=== PATIENT | male | born 1990 | race Caucasian/White ===

== ENCOUNTER 2018-12-24 14:23 | Emergency (ER) | payer SELFPAY ==
[~2018-12-24] VITALS: Ht 185.4 cm; Wt 93.1 kg
[2018-12-24 14:30] VITALS: BP 132/73
--- NOTE | 2018-12-24 14:33 | NUR ---
28 Y MALE BIB SELF C/O LT EYE IRRITATION X1 WEEK, THICK YELLOW DRAINAGE FROM EYE THIS MORNING. LT EYE IS RED, NO SWELLING. PT REPORTS 4/10 PAIN IN EYE. PT DENIES TRAUMA. VSS AT THIS TIME. PT ALERT AND ORIENTED X 4. BED IS DOWN, LOCKED, BED RAIL X 1, ERMD TO SEE PT. MEDHX:DENIES RX:VITAMINS
--- NOTE | 2018-12-24 14:38 | NUR ---
DR ARREDONDO AT BEDSIDE FOR PT EVALUATION
[2018-12-24 14:58] VITALS: BP 132/73
--- NOTE | 2018-12-24 14:58 | NUR ---
Patient discharged with v/s stable. Written and verbal after care instructions given and explained. Patient alert, oriented and verbalized understanding of instructions. Ambulatory with steady gait. All questions addressed prior to discharge. ID band removed. Patient advised to follow up with [facility]. Rx of TOBRAMYCIN OPHTHALMIC SOLUTION, CETIRIZINE HYDROCHLORIDE given. Patient educated on indication of medication including possible reaction and side effects. Opportunity to ask questions provided and answered.
== END 2018-12-24 17:57 | disposition home or self-care (01) ==
LOC: MED 14:23
DX: H10.9 Unspecified conjunctivitis (principal); Z88.1 Allergy status to other antibiotic agents
CPT/HCPCS: 99283